=== PATIENT | female | born 1965 | race African-American/Black ===

== ENCOUNTER 2019-01-07 20:55 | Inpatient (IN) | payer MEDICARE, MEDICAID ==
[~2019-01-07] VITALS: Ht 162.6 cm; Wt 74.0 kg
[2019-01-07] MEDS ORDERED: ONDANSETRON HCL 4MG/2ML INJ IV STA (21:31)
[2019-01-07] MEDS ORDERED: MORPHINE SULFATE 4 MG/ML CPJ (NOT FOR IM USE) IV STA (21:31)
[2019-01-07] MEDS ORDERED: SODIUM CHLORIDE 0.9% 1000ML BAG (SEPSIS BOLUS) IV ONE (21:45)
[2019-01-07] MEDS ORDERED: CEFTRIAXONE 1 G PREMIX 50 ML IV ONE (21:45)
[2019-01-07 21:48] LABS: BASOPHILS % 0.2 % (0.0-2.0); EOSINOPHILS % 0.4 % (0.0-5.0); HEMATOCRIT. 34.1 % (36.0-48.0); HEMOGLOBIN. 11.2 g/dL (12.0-16.0); MEAN CORPUSCULAR HEMOGLOBIN 31.2 pg (28.0-32.0); MEAN CORPUSCULAR VOLUME 95.1 fL (81.0-99.0); MEAN PLATELET VOLUME 7.7 fl (7.4-10.4); MONOCYTES % 8.7 % (2.0-8.0); NEUTROPHILS % 75.7 % (40.0-76.0); PLATELET 382 x1000/uL (130-400); RED BLOOD CELL COUNT 3.58 mill/uL (4.2-5.4); RED CELL DISTRIBUTION WIDTH 12.5 % (11.6-14.6)
[2019-01-07 21:55] LABS: CHLORIDE 104 mEq/L (98-107)
[2019-01-07 21:57] LABS: PROTHROMBIN TIME 10.6 sec (9.6-11.0)
[2019-01-08] MEDS ORDERED: MORPHINE SULFATE 4 MG/ML CPJ (NOT FOR IM USE) IV ONE (00:45)
[2019-01-08] MEDS ORDERED: METRONIDAZOLE 500 MG PREMIX 100 ML IV ONE (01:00)
[2019-01-08 01:03] LABS: CLARITY URINE CLEAR (CLEAR); COLOR URINE YELLOW (YELLOW); KETONES URINE NEGATIVE (NEGATIVE); LEUKOCYTE ESTERASE URINE NEGATIVE (NEGATIVE); NITRITE URINE NEGATIVE (NEGATIVE); OCCULT BLOOD URINE 1+ (NEGATIVE); PH URINE 6.5 (4.5-8.0); PROTEIN URINE NEGATIVE (NEGATIVE); SPECIFIC GRAVITY URINE 1.008 (1.005-1.030); UROBILINOGEN URINE 0.2 E.U./dL (0.2-1.0)
[2019-01-08] MEDS ORDERED: HYDROMORPHONE HCL/PF 2MG/ML CPJ IV NR (01:30)
[2019-01-08] MEDS ORDERED: AMLO-79 MT (05:27)
[2019-01-08] MEDS ORDERED: VENL75CA56 MT (05:28)
[2019-01-08] MEDS ORDERED: PRAV40TA58 MT (05:29)
[2019-01-08 05:30] VITALS: BP 120/67
[2019-01-08] MEDS ORDERED: SULF1TAB47 MT (05:30)
[2019-01-08] MEDS ORDERED: CHOL200074 MT (05:30)
[2019-01-08] MEDS ORDERED: OXYB5TAB11 MT (05:31)
[2019-01-08] MEDS ORDERED: TRAM50TA3 MT (05:32)
[2019-01-08 08:00] VITALS: BP 117/62
[2019-01-08] MEDS ORDERED: LEVOFLOXACIN 500MG PREMIX 100 ML IV NR (09:00)
[2019-01-08] MEDS: ENOXAPARIN 30MG/0.3ML SYR SUBCUT SCH (09:34)
[2019-01-08] MEDS: MORPHINE SULFATE 4 MG/ML CPJ (NOT FOR IM USE) IV PRN ×3 (09:34→20:39)
[2019-01-08] MEDS: ONDANSETRON HCL 4MG/2ML INJ IV PRN (09:35)
[2019-01-08] MEDS: DEXT 5%/0.45% NACL 1000ML 1,000 ML IV SCH (10:28)
[2019-01-08] MEDS: METRONIDAZOLE 500 MG PREMIX 100 ML IV SCH ×2 (11:44→19:02)
[2019-01-08 12:00] VITALS: BP 109/50
[2019-01-08 13:24] LABS: BASOPHILS % 0.3 % (0.0-2.0); EOSINOPHILS % 0.3 % (0.0-5.0); HEMATOCRIT. 32.4 % (36.0-48.0); HEMOGLOBIN. 10.8 g/dL (12.0-16.0); LYMPHOCYTES % 17.5 % (20.0-50.0); MEAN CORPUSCULAR HEMOGLOBIN 31.8 pg (28.0-32.0); MEAN CORPUSCULAR VOLUME 95.6 fL (81.0-99.0); MEAN PLATELET VOLUME 7.6 fl (7.4-10.4); NEUTROPHILS % 70.9 % (40.0-76.0); PLATELET 315 x1000/uL (130-400); RED BLOOD CELL COUNT 3.39 mill/uL (4.2-5.4); RED CELL DISTRIBUTION WIDTH 12.3 % (11.6-14.6)
[2019-01-08 16:00] VITALS: BP 130/59
[2019-01-08 20:00] VITALS: BP 106/79
[2019-01-08 20:39] VITALS: BP 117/60
[2019-01-09] VITALS: BP 118/66
[2019-01-09] MEDS: METRONIDAZOLE 500 MG PREMIX 100 ML IV SCH ×2 (02:16→12:22)
[2019-01-09 04:00] VITALS: BP_SYST 114; BP_SYST 118; BP_DIAS 66
[2019-01-09] MEDS: DEXT 5%/0.45% NACL 1000ML 1,000 ML IV SCH (04:48)
[2019-01-09 06:13] LABS: BASOPHILS % 0.4 % (0.0-2.0); EOSINOPHILS % 0.4 % (0.0-5.0); HEMATOCRIT. 30.6 % (36.0-48.0); HEMOGLOBIN. 10.4 g/dL (12.0-16.0); LYMPHOCYTES % 19.9 % (20.0-50.0); MEAN CORPUSCULAR HEMOGLOBIN 32.1 pg (28.0-32.0); MEAN CORPUSCULAR VOLUME 94.3 fL (81.0-99.0); MONOCYTES % 14.4 % (2.0-8.0); NEUTROPHILS % 64.9 % (40.0-76.0); PLATELET 326 x1000/uL (130-400); RED BLOOD CELL COUNT 3.24 mill/uL (4.2-5.4); RED CELL DISTRIBUTION WIDTH 12.3 % (11.6-14.6)
[2019-01-09 07:17] LABS: CHLORIDE 107 mEq/L (98-107)
[2019-01-09 08:00] VITALS: BP 122/57
[2019-01-09] MEDS ORDERED: VENLAFAXINE HCL 75MG TABLET PO SCH (09:00)
[2019-01-09] MEDS: ENOXAPARIN 30MG/0.3ML SYR SUBCUT SCH (09:17)
[2019-01-09] MEDS: LEVOFLOXACIN 250MG PREMIX 50 ML IV SCH ×2 (09:18→10:58)
[2019-01-09] MEDS: MORPHINE SULFATE 4 MG/ML CPJ (NOT FOR IM USE) IV PRN (11:14)
[2019-01-09] MEDS: ONDANSETRON HCL 4MG/2ML INJ IV PRN (11:20)
[2019-01-09 12:00] VITALS: BP 110/59
[2019-01-09 12:59] VITALS: BP 21/120
== END 2019-01-09 15:40 | disposition home or self-care (01) | DRG 392 ==
LOC: ER 22:26 → 5WST 01-08 00:57 → EDBEDREQSVC 01-08 00:59 → EDBEDREQTM 01-08 00:59 → EDBEDREQDT 01-08 00:59 → EDBEDREQ 01-08 00:59 → ENRESERV 01-08 03:44
PROVIDERS: ADMIT Internal Medicine; ATTEND Internal Medicine
DX: R10.31 Right lower quadrant pain (principal); R65.10 Systemic inflammatory response syndrome (SIRS) of non-infectious origin without acute organ dysfunction; I10 Essential (primary) hypertension; K80.20 Calculus of gallbladder without cholecystitis without obstruction; M19.90 Unspecified osteoarthritis, unspecified site; Z90.49 Acquired absence of other specified parts of digestive tract; Z88.1 Allergy status to other antibiotic agents; Z88.8 Allergy status to other drugs, medicaments and biological substances; Z79.899 Other long term (current) drug therapy
CPT/HCPCS: 36415; 71045; 74176; 76705; 78227; 80048; 83605; 84145; 84484; 93005; 96365; 96366; 96375; 99291; A9537; J0696; J1170; J1650; J1956; J2270; J2405; J3490; J7030; J7050